=== PATIENT | male | born 1965 | race Caucasian/White ===

== ENCOUNTER 2022-12-10 10:04 | Outpatient (CLI) | payer BC, SELFPAY ==
[2022-12-10 12:43] LABS: Chloride* 86 mmol/L (96-114)
[2022-12-10 12:44] LABS: Potassium* 3.3 mmol/L (3.6-5.1)
[2022-12-10 12:46] LABS: Creatinine* 0.7 mg/dL (0.5-1.5); Estimated Glomerular Filt Rate 106 ml/min
[2022-12-10 12:47] LABS: Blood Urea Nitrogen* 22 mg/dL (7-30); Calcium* 7.7 mg/dL (8.4-10.6); Carbon Dioxide* 23 mmol/L (20-32); Glucose* 124 mg/dL (60-115); Uric Acid* 6.6 mg/dL (2.2-8.4)
[2022-12-10 13:13] LABS: Sodium* 116 mmol/L (135-149)
== END 2022-12-10 10:05 | disposition home or self-care (01) ==
PROVIDERS: PCP Family Medicine; Visit Provider Family Medicine
DX: E13.9 Other specified diabetes mellitus without complications (principal); M10.9 Gout, unspecified; E78.5 Hyperlipidemia, unspecified; I10 Essential (primary) hypertension
CPT/HCPCS: 80048; 84550

== ENCOUNTER 2023-07-27 13:15 | Outpatient (CLI) | payer BC, SELFPAY | END 2023-07-27 13:16 | disposition home or self-care (01) | LOC: LONREF 13:16 | PROVIDERS: PCP Family Medicine; Visit Provider Family Medicine | DX: E78.5 Hyperlipidemia, unspecified (principal); E13.9 Other specified diabetes mellitus without complications; I10 Essential (primary) hypertension | CPT/HCPCS: 80061 ==

== ENCOUNTER 2025-01-29 15:55 | Outpatient (CLI) | payer BC, SELFPAY | END 2025-01-29 15:56 | disposition home or self-care (01) | PROVIDERS: PCP Family Medicine; Visit Provider Family Medicine | DX: I10 Essential (primary) hypertension (principal); E78.5 Hyperlipidemia, unspecified; E13.9 Other specified diabetes mellitus without complications; Z13.29 Encounter for screening for other suspected endocrine disorder | CPT/HCPCS: 80048; 80061; 84443 ==